=== PATIENT | male | born 1960 | race Two or more races ===

== ENCOUNTER 2020-02-01 21:02 | Emergency (ER) | payer OTHER ==
[~2020-02-01] VITALS: Ht 162.6 cm; Wt 67.1 kg
[2020-02-01 21:54] LABS: Albumin 3.9 g/dL (3.4-5.0); Anion Gap 3 (5-15); Blood Urea Nitrogen 16 mg/dL (7-18); Calcium 9.2 mg/dL (8.5-10.1); Carbon Dioxide 29 mmol/L (21-32); Chloride 106 mmol/L (98-107); Glucose 233 mg/dL (74-106); Potassium 3.8 mmol/L (3.5-5.1); Sodium 138 mmol/L (136-145)
[2020-02-01 21:59] LABS: Partial Thromboplastin Time 26.1 sec (23.0-31.2)
[2020-02-01 22:00] LABS: Alanine Aminotransferase 35 U/L (16-61); Alkaline Phosphatase 107 U/L (45-117); Aspartate Aminotransferase 20 U/L (15-37); BUN/Creatinine Ratio 14.4; Bilirubin, Total 0.4 mg/dL (0.2-1.0); GFR African American 88 mL/min; GFR Non-African American 73 mL/min; Total Protein 7.9 g/dL (6.4-8.2)
[2020-02-01 22:17] LABS: Basophils # (auto) 0.1 10 ^3/uL (0-0.2); Basophils % (auto) 0.9 % (0.0-2.0); Eosinophils # (auto) 0.3 10 ^3/uL (0-0.8); Eosinophils % (auto) 3.9 % (0.0-7.0); Hematocrit 44.9 % (41.0-53.0); Hemoglobin 15.4 g/dL (13.5-17.5); Lymphocytes # (auto) 2.8 10 ^3/uL (0.4-5.4); Lymphocytes % (auto) 37.2 % (10.0-50.0); Mean Corpuscular Hemoglobin 28.9 pg (28.0-32.0); Mean Corpuscular Hgb Conc. 34.3 g/dL (32.0-36.0); Mean Corpuscular Volume 84.2 fL (80.0-100.0); Monocytes # (auto) 0.6 10 ^3/uL (0-1.3); Monocytes % (auto) 8.2 % (0.0-12.0); Neutrophils # (auto) 3.7 10 ^3/uL (1.6-8.6); Neutrophils % (auto) 49.8 % (37.0-80.0); Platelet Count (auto) 181 10^3/uL (140-450); Red Blood Cells 5.34 10^6/uL (4.5-5.90); Red Cell Distribution Width 13.8 % (11.8-14.3); White Blood Cell 7.5 10^3/uL (4.4-10.8)
[2020-02-01 23:13] VITALS: BP 150/88
== END 2020-02-01 23:22 | disposition home or self-care (01) ==
LOC: ER 21:06
DX: R07.89 Other chest pain (principal); I10 Essential (primary) hypertension; E78.5 Hyperlipidemia, unspecified
CPT/HCPCS: 36415; 71045; 80053; 83880; 84484; 85025; 85610; 85730; 93005

== ENCOUNTER 2020-02-15 07:24 | Inpatient (IN) | payer OTHER ==
[~2020-02-15] VITALS: Ht 162.6 cm; Wt 70.5 kg
[2020-02-15] MEDS ORDERED: ASPirin 81 mg TAB PO ONE (07:45)
[2020-02-15 08:21] LABS: Basophils # (auto) 0.1 10 ^3/uL (0-0.2); Basophils % (auto) 0.9 % (0.0-2.0); Eosinophils # (auto) 0.3 10 ^3/uL (0-0.8); Eosinophils % (auto) 3.8 % (0.0-7.0); Hematocrit 45.6 % (41.0-53.0); Hemoglobin 15.8 g/dL (13.5-17.5); Lymphocytes # (auto) 2.2 10 ^3/uL (0.4-5.4); Lymphocytes % (auto) 30.7 % (10.0-50.0); Mean Corpuscular Hemoglobin 29.3 pg (28.0-32.0); Mean Corpuscular Hgb Conc. 34.5 g/dL (32.0-36.0); Mean Corpuscular Volume 84.7 fL (80.0-100.0); Monocytes # (auto) 0.6 10 ^3/uL (0-1.3); Monocytes % (auto) 8.5 % (0.0-12.0); Neutrophils # (auto) 4.1 10 ^3/uL (1.6-8.6); Neutrophils % (auto) 56.1 % (37.0-80.0); Nucleated Red Blood Cells % 0.2 %; Platelet Count (auto) 170 10^3/uL (140-450); Red Blood Cells 5.39 10^6/uL (4.5-5.90); Red Cell Distribution Width 13.9 % (11.8-14.3); White Blood Cell 7.3 10^3/uL (4.4-10.8)
[2020-02-15 08:37] LABS: Albumin 3.8 g/dL (3.4-5.0); Anion Gap 6 (5-15); Blood Urea Nitrogen 16 mg/dL (7-18); Calcium 8.8 mg/dL (8.5-10.1); Carbon Dioxide 26 mmol/L (21-32); Chloride 106 mmol/L (98-107); Glucose 244 mg/dL (74-106); Potassium 3.9 mmol/L (3.5-5.1); Sodium 138 mmol/L (136-145)
[2020-02-15 08:42] LABS: Alanine Aminotransferase 33 U/L (16-61); Alkaline Phosphatase 106 U/L (45-117); Aspartate Aminotransferase 27 U/L (15-37); BUN/Creatinine Ratio 15.5; Bilirubin, Total 0.4 mg/dL (0.2-1.0); GFR African American 96 mL/min; GFR Non-African American 79 mL/min; Total Protein 7.4 g/dL (6.4-8.2)
[2020-02-15] MEDS ORDERED: MORPHINE SULF INJ 2 MG/ML SYRINGE 1ML IV ONE (09:30)
[2020-02-15] MEDS ORDERED: NITROGLYCERIN 0.4 MG SL TAB SL ONE (09:30)
[2020-02-15] MEDS ORDERED: MORPHINE SULF INJ 2 MG/ML SYRINGE 1ML IV PRN (10:15)
[2020-02-15] MEDS ORDERED: hydrALAZINE HCL 20 MG/ML VL IV PRN (10:15)
[2020-02-15] MEDS ORDERED: HYDROcodone-ACET 5/325MG TAB PO PRN (10:15)
[2020-02-15] MEDS ORDERED: DEXTROSE (50%) 50ML SYRG IV PRN (10:15)
[2020-02-15] MEDS ORDERED: NITROGLYCERIN 0.4 MG SL TAB SL PRN (10:15)
[2020-02-15] MEDS ORDERED: ONDANSETRON HCL 4 MG/2 ML VIAL IV PRN (10:15)
[2020-02-15] MEDS: NITROGLYCERIN 0.4MG/HR TOPICAL PATCH TD SCH (10:53)
[2020-02-15 10:55] LABS: Cholesterol 123 mg/dL (< 200); HDL Cholesterol 32 mg/dL (40-59); LDL Cholesterol 73 mg/dL (< 100); Triglycerides 348 mg/dL (< 150)
[2020-02-15] MEDS: ACCU-CHEK COMFORT CURVE STRIP VI SCH ×3 (11:30→21:53)
[2020-02-15] MEDS: MORPHINE SULF INJ 2 MG/ML SYRINGE 1ML IV PRN (11:49)
[2020-02-15] MEDS: InsuLIN REG 1unit/0.01ml Soln (100units/ml) SC SCH ×3 (12:25→21:53)
[2020-02-15] MEDS ORDERED: PRAS10TA8 PO (12:30)
[2020-02-15] MEDS ORDERED: METF-370 PO (12:30)
[2020-02-15] MEDS ORDERED: ROSU10TA16 PO (12:30)
[2020-02-15] MEDS ORDERED: CARV6.2551 PO (12:30)
[2020-02-15 13:50] VITALS: BP 150/84
[2020-02-15] MEDS: ATORVASTATIN 20 MG TAB PO SCH (21:44)
[2020-02-15] MEDS: CARVEDILOL 3.125 MG TAB PO SCH (21:53)
[2020-02-15 22:00] VITALS: BP 121/75
[2020-02-15] MEDS ORDERED: PANTOPRAZOLE 40 MG TAB PO ONE (22:30)
[2020-02-16 04:47] VITALS: BP 110/62
[2020-02-16] MEDS: ACCU-CHEK COMFORT CURVE STRIP VI SCH ×4 (06:23→21:22)
[2020-02-16] MEDS: InsuLIN REG 1unit/0.01ml Soln (100units/ml) SC SCH ×4 (06:24→21:24)
[2020-02-16 07:26] LABS: Basophils # (auto) 0 10 ^3/uL (0-0.2); Basophils % (auto) 0.5 % (0.0-2.0); Eosinophils # (auto) 0.2 10 ^3/uL (0-0.8); Eosinophils % (auto) 2.1 % (0.0-7.0); Hematocrit 44.9 % (41.0-53.0); Hemoglobin 15.2 g/dL (13.5-17.5); Lymphocytes # (auto) 2.1 10 ^3/uL (0.4-5.4); Lymphocytes % (auto) 21.8 % (10.0-50.0); Mean Corpuscular Hemoglobin 28.5 pg (28.0-32.0); Mean Corpuscular Hgb Conc. 33.9 g/dL (32.0-36.0); Mean Corpuscular Volume 84.2 fL (80.0-100.0); Monocytes # (auto) 0.7 10 ^3/uL (0-1.3); Monocytes % (auto) 7.5 % (0.0-12.0); Neutrophils # (auto) 6.5 10 ^3/uL (1.6-8.6); Neutrophils % (auto) 68.1 % (37.0-80.0); Nucleated Red Blood Cells % 0.2 %; Platelet Count (auto) 175 10^3/uL (140-450); Red Blood Cells 5.33 10^6/uL (4.5-5.90); Red Cell Distribution Width 13.7 % (11.8-14.3); White Blood Cell 9.6 10^3/uL (4.4-10.8)
[2020-02-16 07:44] LABS: INR 1.03 (0.9-1.15)
[2020-02-16 07:48] LABS: BUN/Creatinine Ratio 15.6; Potassium 3.7 mmol/L (3.5-5.1)
[2020-02-16 09:00] VITALS: BP 118/68
[2020-02-16] MEDS ORDERED: FAMOTIDINE 20 MG TAB PO SCH (10:00)
[2020-02-16] MEDS ORDERED: PRASUGREL HCL 10 MG TAB PO SCH (10:00)
[2020-02-16] MEDS: NITROGLYCERIN 0.4MG/HR TOPICAL PATCH TD SCH (10:36)
[2020-02-16] MEDS: CARVEDILOL 3.125 MG TAB PO SCH ×2 (10:38→21:21)
[2020-02-16] MEDS: ASPirin-EC 81 mg tab PO SCH (10:38)
[2020-02-16 13:00] VITALS: BP 121/82
[2020-02-16] MEDS ORDERED: IOHEXOL 350 MG/ML 100ML IJ ONE (13:37)
[2020-02-16] MEDS ORDERED: LIDOCAINE 2%HCL (LOCAL ANESTH.) INJ 20ML MDV ONE (13:37)
[2020-02-16] MEDS ORDERED: SODIUM CHL 0.9% 50 ML ONE (13:43)
[2020-02-16] MEDS ORDERED: fentaNYL CITRATE 100 MCG/2 ML VL ONE (13:43)
[2020-02-16] MEDS ORDERED: ANGIOMAX 250 MG VIAL IV ONE (13:43)
[2020-02-16] MEDS ORDERED: MIDAZOLAM HCL 1MG/1ML-2 ML VIAL ONE (13:43)
[2020-02-16] MEDS: PRASUGREL HCL 10 MG TAB PO SCH (13:51)
[2020-02-16] MEDS ORDERED: PRASUGREL HCL 10 MG TAB ONE (14:13)
[2020-02-16 17:00] VITALS: BP 135/88
[2020-02-16] MEDS: ACETAMINOPHEN 500 MG TAB PO PRN (19:40)
[2020-02-16] MEDS: ATORVASTATIN 20 MG TAB PO SCH (21:22)
[2020-02-16] MEDS: MORPHINE SULF INJ 2 MG/ML SYRINGE 1ML IV PRN (21:25)
[2020-02-16 22:00] VITALS: BP 154/91
[2020-02-17] MEDS ORDERED: FAMOTIDINE 20 MG TAB PO SCH (00:30)
[2020-02-17 05:00] VITALS: BP 136/73
[2020-02-17] MEDS: InsuLIN REG 1unit/0.01ml Soln (100units/ml) SC SCH ×3 (06:41→17:00)
[2020-02-17] MEDS: ACCU-CHEK COMFORT CURVE STRIP VI SCH ×3 (06:42→17:00)
[2020-02-17 09:00] VITALS: BP 149/91
[2020-02-17] MEDS: CARVEDILOL 3.125 MG TAB PO SCH (10:00)
[2020-02-17] MEDS: ASPirin-EC 81 mg tab PO SCH (10:00)
[2020-02-17] MEDS: NITROGLYCERIN 0.4MG/HR TOPICAL PATCH TD SCH (10:01)
[2020-02-17] MEDS: PRASUGREL HCL 10 MG TAB PO SCH (10:01)
[2020-02-17] MEDS: ACETAMINOPHEN 500 MG TAB PO PRN (11:19)
[2020-02-17 13:00] VITALS: BP 152/90
[2020-02-17] MEDS ORDERED: ASPI81CH43 PO (15:19)
[2020-02-17 16:16] VITALS: BP 152/90
[2020-02-17 17:00] VITALS: BP 139/84
== END 2020-02-17 17:20 | disposition home or self-care (01) | DRG 247 ==
LOC: ER 07:24 → TELE-WESTW 07:25
PROVIDERS: ADMIT Nurse Practitioner Acute Care; ATTEND Hospitalist
PROC: 027135Z Dilation of Coronary Artery, Two Arteries with Two Drug-eluting Intraluminal Devices, Percutaneous Approach (ICD-10-PCS; principal; 2020-02-16)
PROC: 4A033BC Measurement of Arterial Pressure, Coronary, Percutaneous Approach (ICD-10-PCS; 2020-02-16)
PROC: 4A023N7 Measurement of Cardiac Sampling and Pressure, Left Heart, Percutaneous Approach (ICD-10-PCS; 2020-02-16)
PROC: B2111ZZ Fluoroscopy of Multiple Coronary Arteries using Low Osmolar Contrast (ICD-10-PCS; 2020-02-16)
PROC: B2151ZZ Fluoroscopy of Left Heart using Low Osmolar Contrast (ICD-10-PCS; 2020-02-16)
DX: I25.110 Atherosclerotic heart disease of native coronary artery with unstable angina pectoris (principal); D68.59 Other primary thrombophilia; E78.5 Hyperlipidemia, unspecified; E11.9 Type 2 diabetes mellitus without complications; E78.00 Pure hypercholesterolemia, unspecified; K29.70 Gastritis, unspecified, without bleeding; Z95.5 Presence of coronary angioplasty implant and graft; Z79.84 Long term (current) use of oral hypoglycemic drugs; Z79.01 Long term (current) use of anticoagulants
CPT/HCPCS: 36415; 71045; 80048; 80053; 80061; 82962; 83036; 84443; 84484; 85025; 85610; 85730; 86141; 86850; 86900; 86901; 92928; 93005; 93306; 93458; 93571; 99152; C1874; G0378; J1815; J2250